=== PATIENT | male | born 1980 | race Caucasian/White ===

== ENCOUNTER 2017-08-08 10:04 | Day surgery (SDC) | payer MEDICARE, MEDICAID, SELFPAY ==
[2017-08-08 10:22] VITALS: BP 101/64; PULSE 57; RESP 18; TEMP 36.3; O2SAT 100; BMI 23.9
--- NOTE | 2017-08-08 11:07 | RAD_ITS ---
STUDY: X-RAY - LUMBAR SPINE REASON FOR EXAM: Male, 37 years old. Radiofrequency ablation. TECHNIQUE: 11 coned-down intraoperative view(s) of the lumbar spine were obtained. COMPARISON: None FINDINGS: Imaging provided for radiofrequency ablation of the left L3-S1 level. RAD/L/S Spine Min 4 Views IMPRESSION: Intraoperative imaging provided for radiofrequency ablation of the L3-S1 level on the left side. Electronically Signed: Isaac Martini MD at 15:35 EDT Tel [phone], Service support ,
[2017-08-08] MEDS: MethylPREDNISolone Acetate 80 MG/ML Vial (11:24)
[2017-08-08] MEDS: Bupivacaine 0.25% 30 ML Vial (11:24)
[2017-08-08 11:35] VITALS: BP 101/64; BP 86/56; PULSE 64; RESP 18; TEMP 36.2; O2SAT 94
[2017-08-08 11:40] VITALS: BP 101/64; BP 90/55; PULSE 54; RESP 18; O2SAT 94
[2017-08-08 11:45] VITALS: BP 101/64; BP 91/60; PULSE 55; RESP 18; O2SAT 93
[2017-08-08 11:49] VITALS: BP 101/64; BP 95/59; PULSE 51; RESP 18; TEMP 36.1; O2SAT 95
[2017-08-08 11:58] VITALS: BP 101/64
--- NOTE | 2017-08-08 13:54 | PCM.OPRPT ---
Problem List (1) Degeneration of intervertebral disc of lumbosacral region Status: Chronic (2) Spondylosis of lumbosacral region without myelopathy or radiculopathy Status: Chronic (3) Spondylolisthesis of lumbar region Status: Chronic Report of Operation Date of Procedure: 08/08/17 Pre-Operative Diagnosis: Lumbosacral spondylosis, lumbosacral degenerative disc disease, lumbar facet arthropathy Post-Operative Diagnosis: Lumbosacral spondylosis, lumbosacral degenerative disc disease, lumbar facet arthropathy Surgery/Procedure Performed:: Left sided lumbar radiofrequency ablation of the medial branch at L3, L4, L5, S1 Description of Surgical Findings:: PROCEDURE: Left-sided radiofrequency ablation of the medial branch L3, L4, L5, S1 PREOPERATIVE DIAGNOSES: Lumbosacral spondylosis, lumbosacral degenerative disc disease, lumbar facet arthropathy POSTOPERATIVE DIAGNOSES: Lumbosacral spondylosis, lumbosacral degenerative disc disease, lumbar facet arthropathy ANESTHESIA: MAC COMPLICATIONS: None BLOOD LOSS: Minimal PROCEDURE IN DETAIL: History and physical today was reviewed. Risks and benefits of procedure explained. The patient understood, agreed to the procedure and informed consent was obtained. IV inserted per routine protocol. The patient was taken to the operating room, placed in the prone position with a pillow positioned underneath the abdomen. The left side of the lower back was prepped and draped in a sterile fashion using iodine x 3. Under fluoroscopy guidance, on an oblique view, the L3 through S1 vertebral bodies were visualized. The skin and subcutaneous tissue was anesthetized with approximately 10 mL of 1% lidocaine using a 25-gauge regular needle. Under direct visualization with fluoroscopy at approximately 25-degree angle, starting on the left L3, ending on the left S1 passing through the L4-L5 using a 20-gauge 15 cm with a 10 mm curved active tip radiofrequency ablation needle the needle passed through the skin. The tip of the needle was maneuvered and directed towards the superior and medial gutter of the transverse process at the vicinity of the medial branch. Once the tip of the needle was in contact with the bone, the needle pulled approximately 2 mm up the bone. The stylet of each needle was then removed. After negative aspiration of blood with CSF and confirmation of AP as well as oblique view, radiofrequency ablation probe was then inserted at each level. Impedance was then recorded at L3 to be 299, at L4 237, at L5 300, at S1 212 ohm. Motor-evoked potential was then initiated to 1.5 volt without any motor response at each corresponding level. The probe was then removed intact and a total of 6 mL preservative-free 1% lidocaine was injected in divided doses between those 4 levels after negative aspiration of blood with CSF. The radiofrequency ablation probe was then reinserted after confirmation of AP, oblique as well as lateral view. Radiofrequency ablation was then initiated to 80 degrees Celsius for 90 seconds at each level. Once concluded, the probe was then removed intact and a total of 6 mL of preservative-free 0.25% Marcaine with 40 mg Depo-Medrol was injected in divided doses between those 4 levels. The needles were then removed intact. The patient experienced no signs or symptoms of intrathecal, intravascular injection. The patient experienced no paraesthesia. The procedure was completed without any apparent difficulty, any complication. The patient appeared to tolerate well. Sensory as well as motor exam was unchanged from prior to procedure. ASSESSMENT AND PLAN: This is a 37-year-old male with lumbosacral spondylosis, lumbosacral degenerative disc disease, lumbar facet arthropathy, status post left-sided radiofrequency ablation of the medial branch L3 through S1. The patient will continue his current medications. The patient will follow up in approximately 2 weeks for reevaluation.
== END 2017-08-08 12:13 | disposition home or self-care (01) ==
LOC: SDC 10:06 → AC 10:08
PROVIDERS: Visit Provider Anesthesiology Pain Medicine
PROC: (CPT 62282; principal; 2017-08-08 11:25)
DX: M51.17 Intervertebral disc disorders with radiculopathy, lumbosacral region (principal); J45.909 Unspecified asthma, uncomplicated; Z86.73 Personal history of transient ischemic attack (TIA), and cerebral infarction without residual deficits; M51.36 Other intervertebral disc degeneration, lumbar region; M51.26 Other intervertebral disc displacement, lumbar region; M41.20 Other idiopathic scoliosis, site unspecified; M79.1 Myalgia; M25.511 Pain in right shoulder; Z79.891 Long term (current) use of opiate analgesic; F17.210 Nicotine dependence, cigarettes, uncomplicated; M46.96 Unspecified inflammatory spondylopathy, lumbar region
CPT/HCPCS: 62282 ×3; 72110; 76000; J7120

== ENCOUNTER → 2024-08-14 | Outpatient (CLI) | payer MEDICARE, MEDICAID, SELFPAY ==
--- NOTE | 2024-08-14 10:20 | RAD_ITS ---
PROCEDURE: L/S SPINE W BEND MIN 6 VW 08/14/2024 REASON FOR EXAM: OTHER INTERVERTEBRAL DISC DEGENERATION, LUMBOSACRAL REGION WITH D TECHNIQUE: 6 views; AP, bilateral oblique, lateral, flexion-extension COMPARISON: None available FINDINGS: For nomenclature purposes there are 6 [id number] lumbar vertebral body types identified. No fracture or malalignment. Mild leftward curvature. Note is made of surgical staple lines and surgical clips at the epigastrium/upper abdomen. Note is made of non osseous fusion of the midline posterior element/spinous process of the lowermost lumbar segment, developmental variant. No spondylolysis identified. No evidence of instability. There is not much degree of change between neutral, flexion or extension and may represent spasm. L3-4 moderate disc space narrowing and degenerative endplate change L4-5 mild disc space narrowing and degenerative endplate change L5-6 moderate disc space narrowing RAD/L/S Spine w Bend Min 6 Vw IMPRESSION: There is not much degree of change between neutral, flexion or extension and ma y represent spasm. Multilevel spondylosis/discogenic change as above. Reading Location: [id number]
== END | disposition home or self-care (01) ==
PROVIDERS: PCP Nurse Practitioner Family; Referring Provider Anesthesiology Pain Medicine; Visit Provider Anesthesiology Pain Medicine
DX: M51.379 Other intervertebral disc degeneration, lumbosacral region without mention of lumbar back pain or lower extremity pain (principal)
CPT/HCPCS: 72114